=== PATIENT | female | born 1990 | race Caucasian/White ===

== ENCOUNTER 2020-02-06 10:08 | Inpatient (IN) ==
[2020-02-06] MEDS ORDERED: Metoclopramide 10 MG/2 ML VIAL IVP ONE (11:05)
[2020-02-06] MEDS: Ringers Solution, Lactated 1,000 ML IVC SCH ×2 (11:25→13:08)
[2020-02-06] MEDS: Famotidine 20 MG/2 ML VIAL IVP ONE ×2 (11:28→11:29)
[2020-02-06 11:36] LABS: Basophils % 0.3 %; Eosinophils % 0.4 %; Hematocrit 36.9 % (35.3-44.9); Hemoglobin 11.9 g/dL (11.5-15.4); Immature Granulocytes % 0.5 % (0-4); Lymphocytes # 1.7 K/mcL (0.6-4.6); Lymphocytes % 15.5 %; Mean Corpuscular HGB Conc 32.2 g/dL (31.6-35.5); Mean Platelet Volume 12.2 fL (9.4-12.4); Monocytes # 0.6 K/mcL (0.0-1.3); Monocytes % 5.4 %; Neutrophils # 8.3 K/mcL (1.6-8.9); Platelet Count 216 K/mcL (140-400); Red Cell Distribution Width 13.2 % (11.5-14.5); Segmented Neutrophils % 77.9 %; White Blood Count 10.7 K/mcL (4.3-11.1)
[2020-02-06 11:47] LABS: Amphetamine Screen,Urine Negative ng/mL (Cutoff=1000); Barbiturate Screen,Urine Negative ng/mL (Cutoff=200); Benzodiazepines Screen,Urine Negative ng/mL (Cutoff=200); Cannabinoid Screen,Urine Positive ng/mL (Cutoff = 50); Cocaine Screen,Urine Negative ng/mL (Cutoff= 300); Opiate Screen,Urine Negative ng/mL (Cutoff=300); Phencyclidine Screen,Urine Negative ng/mL (Cutoff=25)
[2020-02-06] MEDS ORDERED: CeFAZolin 2,000 MG/50 ML BAG IVPB ONE (11:53)
[2020-02-06] MEDS ORDERED: Naloxone 0.4 MG/ML INJ IVP PRN (11:57)
[2020-02-06] MEDS ORDERED: EPHEDrine 50 MG/ML VIAL ONE (13:03)
[2020-02-06] MEDS ORDERED: *HR* Morphine Sulfate/PF 10 MG/10 ML AMPUL ONE (13:03)
[2020-02-06] MEDS ORDERED: *HR* FentaNYL (PF) 100 MCG/2 ML VIAL ONE (13:03)
[2020-02-06] MEDS ORDERED: *HR* Oxytocin 10 UNIT/ML VIAL IM ONE ×2 (13:04→14:29)
[2020-02-06] MEDS ORDERED: Ringers Solution, Lactated 1,000 ML ONE ×2 (13:47→14:29)
[2020-02-06] MEDS ORDERED: Ondansetron 4 MG/2 ML VIAL ONE (14:00)
[2020-02-06] MEDS ORDERED: Acetaminophen IV 1,000 MG/100 ML INFUS..BTL ONE (14:00)
[2020-02-06] MEDS ORDERED: *HR* OxyCODONE Immed Rel 5 MG TABLET PO PRN (15:22)
[2020-02-06] MEDS ORDERED: *HR* HYDROmorphone PF 0.5 MG/0.5 ML SYRINGE IVP PRN (15:22)
[2020-02-06] MEDS ORDERED: Ondansetron 4 MG/2 ML VIAL IVP ONE (15:22)
[2020-02-06] MEDS ORDERED: *HR* Promethazine 25 MG/ML VIAL IVP PRN (15:22)
[2020-02-06] MEDS ORDERED: Ondansetron 4 MG/2 ML VIAL IVP PRN (17:23)
[2020-02-06] MEDS ORDERED: Rho Immune Globulin 1,500 UNIT SYRINGE IM ONE (17:23)
[2020-02-06] MEDS ORDERED: Sennosides 8.6 MG TABLET PO PRN (17:23)
[2020-02-06] MEDS ORDERED: Oxytocin 20 units/ LR 1000 mL 20 UNIT/1,000 ML BAG IVC SCH ×2 (17:23)
[2020-02-06] MEDS ORDERED: Simethicone 80 MG TAB.CHEW PO PRN (17:23)
[2020-02-06] MEDS ORDERED: Acetaminophen 325 MG TABLET PO PRN (17:23)
[2020-02-06] MEDS ORDERED: Metoclopramide 10 MG/2 ML VIAL IVP PRN (17:23)
[2020-02-06] MEDS: Ibuprofen 600 MG TABLET PO PRN (19:26)
[2020-02-07] MEDS: Ibuprofen 600 MG TABLET PO PRN ×2 (05:30→12:47)
[2020-02-07 05:49] LABS: Basophils % 0.2 %; Eosinophils % 0.5 %; Hematocrit 29.4 % (35.3-44.9); Hemoglobin 9.4 g/dL (11.5-15.4); Immature Granulocytes % 0.4 % (0-4); Lymphocytes # 1.4 K/mcL (0.6-4.6); Lymphocytes % 16.9 %; Mean Corpuscular Hemoglobin 28.8 pg (28.0-33.3); Mean Corpuscular Volume 90.2 fL (83.0-100.0); Mean Platelet Volume 11.7 fL (9.4-12.4); Monocytes # 0.5 K/mcL (0.0-1.3); Monocytes % 5.9 %; Neutrophils # 6.3 K/mcL (1.6-8.9); Platelet Count 155 K/mcL (140-400); Red Blood Count 3.26 M/mcL (3.82-4.97); Red Cell Distribution Width 13.4 % (11.5-14.5); Segmented Neutrophils % 76.1 %; White Blood Count 8.3 K/mcL (4.3-11.1)
[2020-02-07] MEDS: *HR* OxyCODONE Immed Rel 5 MG TABLET PO PRN ×2 (08:11→15:27)
[2020-02-07] MEDS ORDERED: Prenatal Vit/FA 1 EACH TABLET PO SCH (09:00)
[2020-02-07] MEDS ORDERED: NON-FORMULARY MEDICATION 1 EACH EACH (Pnv No.95/Ferrous Fum/Folic Ac [Prenatal Caplet] 1 T PO SCH (09:00)
[2020-02-07 11:51] VITALS: BP 123/73
== END 2020-02-07 16:10 | disposition home or self-care (01) | DRG 785 ==
LOC: 1NENULAB 10:08 → 1NENUOBS 17:11
PROVIDERS: ADMIT Student in an Organized Health Care Education/Training Program; ATTEND Student in an Organized Health Care Education/Training Program